=== PATIENT | female | born 1975 | race Caucasian/White ===

== ENCOUNTER 2025-04-04 10:30 | Outpatient (AMB) | payer BC, SELFPAY ==
--- NOTE | 2025-04-04 10:33 | A.OFFPC_ITS ---
Vital Signs 04/04/25 10:38 04/04/25 10:58 Height 5 ft 1 in Weight 243 lb 8 oz BMI 46.0 BP 152/94 H 150/90 H Blood Pressure Location Lt brachial Lt brachial Position Sitting Sitting Respiration 15 Pulse 95 Pulse Source Pulse Oximeter Temp 98.4 F Temp Source Oral Pulse Oximetry (%) 95 Oxygen Delivery Method Room Air Intake Visit Reasons: Coughing severe Intake Note: Patient c/o severe coughing, bodyaches, fever, and migraines last week in a half has gotten worse. [employer] Fscm Developer Required: No Allergies Seasonal Allergies Allergy (Mild, Verified 04/04/25 10:46) Runny Nose hydrocodone (Vicodin) Allergy (Unknown, Verified 04/04/25 10:46) nausea and vomiting morphine (Morphine) Allergy (Unknown, Verified 04/04/25 10:46) NAUSEA, vomiting acetaminophen (From Vicodin) Adverse Reaction (Mild, Verified 04/04/25 10:46) Nausea Medication List - Last Reconciled 04/04/25 by Maya Martinez [facility]- albuterol sulfate 90 mcg/actuation 2 puffs inhalation Q6H PRN fluticasone propionate 50 mcg/actuation 1 spray intranasal BID inhalational spacing device (BreatheRite MDI Spacer) As directed lisinopril 10 mg PO DAILY 90 days Tobacco use date assessed: 04/04/25 Dental Screening Dental Screen Date: 04/04/25 Did you have a dental visit in the last 12 months?: Yes Did you have a dental problem in the last 6 months where you did not have access to dental care?: No Was dental information given to patient?: Patient has dentist HPI HPI Comments History of Present Illness Details 49-year-old female with obesity, umbilic al hernia containing fat and omentum, uterine fibroid, bilat adnexal cysts, hepatic steatosis, CRPS, hyperlipidemia, prediabetes s/p repair of large umbilical hernia with mesh along with partial omentectomy 07/14/2023 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 History The patient is a 49-year-old female presenting with a persistent cough. Acute Cough: - The patient reports a cough that began intermittently in December, which she initially attributed to seasonal allergies. - Over the last week, the cough has beco me severe, disrupting her sleep and causing her to wake up throughout the night. - Associated symptoms include chest pain , headaches, and ear pain. - The cough is forceful enough to induce a vomiting sensation and stress urinary incontinence. - Symptoms are exacerbated by exertion, such as walking across campus or climbing stairs. - Self-treatment with Robitussin, Clarit in, an inhaler, and leftover cough pills has not provided relief. - The patient has a history of sinus inf ections and questions if this has progressed to bronchitis. Past Medical History - Sinus infections - History of a similar illness over the summer treated with prednisone and tessalon pills. Review of Systems - Constitutional: Denies fever. - Respiratory: Reports a severe cough an d dyspnea on exertion. Reports chest pain with coughing. Denies wheezing. - HEENT: Reports headache and ear pain. Reports significant congestion. - Gastrointestinal: Reports feeling like she is going to vomit from coughing. - Genitourinary: Reports stress incontin ence with coughing. Physical Exam General: Awake, alert. Mildly ill appearing No apparent distress Eyes: Sclera and conjunctiva clear bilaterally Nose: Nares clear drainage, turbinates within normal limits, no sinus tenderness with palpation bilaterally Ears: Tympanic membranes intact and clear bilaterally, both ears slightly pink, L>R Throat: Moist mucosa membrane, pharynx within normal limits Cardiovascular: Regular rate and rhythm Repeat BP 150/90 Respiratory: Paroxysmal cough, audible wheezing, increased bronchial breath sounds with inhalation and exhalation anterior upper chest Medical Decision Making The patient is a 49-year-old female presenting with a cough that started in December and has acutely worsened over the past week, now associated with sleep disturbance, chest pain, headache, and ear pain. She has failed conservative management with OTC medications and an inhaler. Physical exam is notable for significant upper airway congestion and bilateral erythematous tympanic membranes. Blood pressure is elevated, which will be rechecked at a future visit as it is likely reactive to her acute illness. Given the duration, severity of symptoms, and failure to improve, the clinical p icture suggests an acute upper respiratory infection, likely with a bacterial component such as sinusitis or bronchitis. The treatment plan is to address both the infectious and inflammatory components. I will prescribe a course of azithromycin and prednisone, which was effective for her during a prior illness. For symptomatic relief, particularly at night, a small prescription of cough syrup with codeine will be provided. The patient is afebrile, so there is no contraindication to administering the influenza vaccine today. I have instructed her on supportive care, including hydration and use of her inhaler, and to follow up in two weeks if her symptoms have not resolved. Plan 1. Acute Cough - Prescribed azithromycin and prednisone . - Prescribed cough syrup with codeine fo r use at night. Cont inhalers - Administer influenza vaccine in-office . - Advised patient to increase fluid inta ke and use her inhaler as needed. - Instructed to return for re-evaluation in two weeks if symptoms do not improve after completing the course of therapy. 2. Elevated Blood Pressure - The patient's blood pressure was noted to be high, likely due to her current illness. - Plan to recheck blood pressure at a fu ture visit when the patient is feeling better. - Cont lisinopril Patient Instructions - You will receive a flu shot today in [facility]. - Prescriptions for azithromycin and pre dnisone have been sent to [facility] on [facility]. - A prescription for cough syrup with co deine will also be sent for you to use at nighttime to help you sleep. - Drink plenty of fluids to help with th e cough. - Do not be afraid to use your inhaler i f needed. - If you are not feeling better in two w eeks, after you have finished all the medicine, you need to come back to the office to be seen again. Consent Patient was informed and verbally consented to the use of an ambient scribe for clinic note documentation during this visit [facility] Medical History (Updated 04/04/25 @ 11:00 by Maya Martinez, [facility]) Abnormal mammogram of left breast Abnormal ultrasound of breast General medical examination Obese Pilar cysts Right sided abdominal pain Scalp cyst Umbilical hernia Surgical History (Updated 03/07/25 @ 13:37 by Craline Barr) H/O breast biopsy History of removal of cyst (~06/18/15) History of surgery on arm History of surgical removal of ganglion cyst Hx of umbilical hernia repair (07/14/23) Family History (System 03/07/25 @ 13:37 by Carline Barr) Mother High blood pressure Stroke Father Sarcoid Cirrhosis of liver Social History (System 03/07/25 @ 13:37 by Carline Barr) Household Members: Family Household Members Other:: and parents Housing: House Are you a primary manager medicare marketing to a significant other at home: No Do you presently have visiting nurse or other home services: No Patient Tobacco Use Status: Former Tobacco user Years Smoked: less than a year e-Cigarette/Vaping Use: Never Used Second Hand Smoke Exposure: No service: No Current occupational status: employed Current occupation: [employer] Current occupational exposures/hazards: No Cognitive needs: No Hearing needs: No Vision needs: Yes Female Reproductive History Menstrual Age of Menarche: 15 Questionnaire Thrive Questionnaire Date Thrive assessed: 06/27/24 DANIE-7 AMB Questionnaire DANIE-7 Date DANIE - 7 assessed: 07/01/24 Source: Developed by Drs. Bong Rowland, Yuly Silverio, Jose Lindsey and colleagues, with an educational clarence from [employer]. Physical exam (Primary Care) Vital Signs: Last Vital Signs Temp 98.4 F 04/04/25 10:38 Pulse 95 04/04/25 10:38 Resp 15 04/04/25 10:38 BP 152/94 H 04/04/25 10:38 Pulse Ox 95 04/04/25 10:38 Oxygen Delivery Method Room Air 04/04/25 10:38 BMI result Body Mass Index 46.0 Tobacco/Smoking Status: Tobacco use Status Tobacco use date assessed 04/04/25 04/04/25 10:37 Patient Tobacco Use Status Former Tobacco user 04/04/25 10:37 e-Cigarette/Vaping Use Never Used 04/04/25 10:37 Thrive Assessment: Date of Thrive Assessment Date Thrive assessed 06/27/24 04/04/25 10:37 Office Procedures Flu Questionnaire Does the patient have a severe egg allergy?: No Does the patient have severe life threatening allergies?: No Does the patient have a fever or illness today?: No Has the patient ever had Guillain-[place] Syndrome?: No Has the patient ever had any past reaction to a flu shot?: No Immunizations Fluarix [id number] (PF) 45 mcg (15 mcg x 3)/0.5 mL IM syringe Performing Provider: GIO Malloy Performing Location: [facility] [place] Family Medicine Administered by: Herrera Rao MA on 04/04/25 10:57 Dose Route Admin Location Dispensed Lot Number Expiration Date NDC Body Shop Technician 0.5 mL IM Left Deltoid 0.5 mL [id number] 11/28/25 [id number] [employer]LA[employer] SMITHK[employer] VIS Given Date VIS Provided VIS Publication Date 04/04/25 Single Vaccine 24 Eligibility Eligibility Date Funding Source Not [facility] Eligible 04/04/25 Private Coding Level of Care Code Est Pt Level 3 (31359) Complex EM visit Add On G2211 Diagnoses Lower respiratory infection (e.g., bronchitis, pneumonia, pneumonitis, pulmonitis) J22 Influenza vaccination administered at current visit Z23 Primary hypertension I10 Hypertension type: primary hypertension Assessment & Plan Assessment & Plan (1) Lower respiratory infection (e.g., bronchitis, pneumonia, pneumonitis, pulmonitis): Code(s): J22 - Unspecified acute lower respiratory infection Category: Medical (2) Influenza vaccination administered at current visit: Onset Date: ~04/04/25 Code(s): Z23 - Encounter for immunization Category: Medical (3) HTN (hypertension): Code(s): I10 - Essential (primary) hypertension Category: Medical Qualifiers: Hypertension type: primary hypertension Qualified Code(s): I10 - Essential (primary) hypertension Plan . Orders: Orders Influenza [id number] Immunization Today Z23 - Encounter for immunization Medications: New codeine-guaifenesin 10-100 mg/5 mL (Guaifenesin AC) 10 mL PO BEDTIME PRN 50 mL 0RF cough 5 days prednisone 40 mg (2 x 20 mg) PO DAILY 10 tabs 0RF azithromycin For 250 mg dose pack: take 500 mg today (day 1), then 250 mg for 4 days (days 2-5) PO 6 tabs 0RF 5 days
[2025-04-04 10:38] VITALS: BP 152/94; PULSE 95; RESP 15; TEMP 36.9; O2SAT 95; BMI 46.0
[2025-04-04 10:58] VITALS: BP 150/90
== END 2025-04-04 10:58 | disposition home or self-care (01) ==
LOC: HO.HMCFM 10:30
PROVIDERS: PCP Nurse Practitioner Family; Visit Provider Nurse Practitioner Family
DX: J22 Unspecified acute lower respiratory infection (principal); Z23 Encounter for immunization; I10 Essential (primary) hypertension

== ENCOUNTER → 2025-04-04 10:30 | Outpatient (BNVA) | payer BC, SELFPAY | PROVIDERS: PCP Nurse Practitioner Family; Visit Provider Nurse Practitioner Family | DX: R05.1 Acute cough (principal); J22 Unspecified acute lower respiratory infection; I10 Essential (primary) hypertension; Z23 Encounter for immunization | CPT/HCPCS: 90471; 90656 ==

== ENCOUNTER 2025-05-23 09:12 | Outpatient (REF) | payer BC, SELFPAY ==
[2025-05-23 10:30] LABS: Alanine Aminotransferase 33 U/L (0-31); Albumin Level 4.3 g/dL (3.5-5.0); Alkaline Phosphatase 90 U/L (39-117); Anion Gap 12 (12-20); Aspartate Amino Transferase 29 U/L (5-31); Blood Urea Nitrogen 13 mg/dL (9-16); Calcium 9.0 mg/dL (8.4-10.2); Carbon Dioxide 24 mmol/L (22-29); Chloride 110 mmol/L (96-108); Cholesterol 222 mg/dL (<200); Estimated Glomerular Filt Rate > 60; HDL Cholesterol 38 mg/dL (>40); Potassium 4.4 mmol/L (3.3-5.1); Sodium 142 mmol/L (135-145); Total Protein 6.8 g/dL (6.5-8.0); Triglycerides 146 mg/dL (<150)
[2025-05-23 11:01] LABS: Microalbum/Creatinine Ratio Ur 123.3 ug/mg cr (<30)
== END 2025-05-23 09:13 | disposition home or self-care (01) ==
LOC: HO.LAB 09:12
PROVIDERS: PCP Nurse Practitioner Family; Visit Provider Nurse Practitioner Family
DX: Z00.00 Encounter for general adult medical examination without abnormal findings (principal); K76.0 Fatty (change of) liver, not elsewhere classified; E78.2 Mixed hyperlipidemia; E66.01 Morbid (severe) obesity due to excess calories; Z68.42 Body mass index [BMI] 45.0-49.9, adult; R73.03 Prediabetes
CPT/HCPCS: 36415; 80053; 80061; 82043; 82306; 82570; 83036; 84443

== ENCOUNTER 2025-05-26 11:59 | Outpatient (AMB) | payer BC, SELFPAY ==
--- NOTE | 2025-05-26 12:01 | A.OFFPC_ITS ---
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 blood pressure checked. BREAST CANCER SCREENING Experts do not agree about the benefits of breast self-exams in finding breast cancer or saving lives. Talk to your provider about what is best for you. A screening mammogram is not recommended for most women under age 40. Your provider may discuss and recommend mammograms, MRI scans, or ultrasounds if you have an increased risk for breast cancer, such as: A mother or sister who had breast cancer at a young age (most often starting screening earlier than the age the close relative was diagnosed) You carry a high-risk genetic marker CERVICAL CANCER SCREENING Cervical cancer screening should start at age 21 years unless your provider advises otherwise. After the first test: Women ages 21 through 29 should have a Pap test every 3 years. Exoprts do not agree on whether HPV testing is recommended for this age group. Women ages 30 through 65 should be screened with either a Pap test every 3 years or the HPV test every 5 years or both tests every 5 years (called cotesting ). Women who have been treated for precancer (cervical dysplasia) should continue to have Pap tests for 20 years after treatment or until age 65, whichever is longer. If you have had your uterus and cervix removed (total hysterectomy), and you have not been diagnosed with cervical cancer or precancer (high grade cervical neoplasia), you do not need cervical cancer screening. CHOLESTEROL SCREENING Cholesterol screening should begin at: Age 45 for women with no known risk factors for coronary heart disease Age 20 for women with known risk factors for coronary heart disease Repeat cholesterol screening should take place: Every 5 years for women with normal cholesterol levels More often if changes occur in lifestyle (including weight gain and diet) More often if you have diabetes, heart disease, kidney problems, or certain other conditions DIABETES SCREENING You should be screened for diabetes starting at age 35 and then repeated every 3 years if you have no risk factors for diabetes. Screening may need to start earlier and be repeated more often if you have other risk factors for diabetes, such as: You have a first degree relative with diabetes. You are overweight or have obesity. You have high blood pressure, prediabetes, or a history of heart disease. Screening for diabetes should be done if you are planning to become and you are overweight and have other risk factors such as high blood pressure. DENTAL EXAM Go to the dentist once or twice every year for an exam and cleaning. Your dentist will evaluate if you need more frequent visits. EYE EXAM Have an eye exam every 5 to 10 years before age 40. If you have vision problems, have an eye exam every 2 years or more often if recommended by your provider. You should have an eye exam that includes an examination of your retina (back of your eye) at least every year if you have diabetes. IMMUNIZATIONS Commonly needed vaccines include: Flu shot: get one every year. COVID-19 vaccine: ask your provider what is best for you. Tetanus-diphtheria and acellular pertussis (Tdap) vaccine: have one at or after age 19 as one of your tetanus-diphtheria vaccines if you did not receive it as an adolescent. Tetanus-diphtheria: have a booster (or Tdap) every 10 years. Varicella vaccine: receive 2 doses if you never had chickenpox or the varicella vaccine. Hepatitis B vaccine: receive 2, 3, or 4 doses, depending on your exact circ umstances. Measles, mumps, and rubella (MMR) vaccine: receive 1 to 2 doses if you are not already immune to MMR. Your provider can tell you if you are immune. Ask your provider about the human papillomavirus (HPV) vaccine if: You have not received the HPV vaccine in the past You have not completed the full vaccine series (you should catch up on this shot) Ask your provider if you should receive other immunizations if you have certain health problems that increase your risk for some diseases such as pneumonia. INFECTIOUS DISEASE SCREENING Women who are sexually active should be screened for chlamydia and gonorrhea up until age 25. Women 25 years and older should be screened for chlamydia and gonorrhea if at high risk. Screening for hepatitis C: All adults ages 18 to 79 should get a one-time test for hepatitis C. people should be screened at every . Screening for human immunodeficiency virus (HIV): All people ages 15 to 65 should get a one-time test for HIV. Depending on your lifestyle and medical history, you may also need to be screened for infections such as syphilis and HIV, as well as other infections. PHYSICAL EXAM All adults should visit their provider from time to time, even if they are healthy. The purpose of these visits is to: Screen for disease Assess your risk of future medical problems Encourage a healthy lifestyle Update your vaccinations and other preventive care services Maintain a relationship with a provider in case of an illness Your height, weight, and BMI should be checked at every exam. During your exam, your provider may ask you about: Depression and anxiety Diet and exercise Alcohol and tobacco use Safety issues, such as using seat belts, smoke detectors, and intimate partner violence Your medicines and risk for interactions SKIN SELF-EXAM Your provider may check your skin for signs of skin cancer, especially if you're at high risk, such as if you: Have had skin cancer before Have close relatives with skin cancer Have a weakened immune system OTHER SCREENING Talk with your provider about colon cancer screening if you have a strong family history of colon cancer or polyps, or if you have had inflammatory bowel disease or polyps yourself. Routine bone density screening of women under 40 is not recommended.
[2025-05-26 12:03] VITALS: BP 136/104; PULSE 87; RESP 14; TEMP 36.3; O2SAT 99; BMI 46.1
[2025-05-26 12:09] VITALS: BP 130/94
== END 2025-05-26 12:59 | disposition home or self-care (01) ==
LOC: HO.HMCFM 11:59
PROVIDERS: PCP Nurse Practitioner Family; Visit Provider Nurse Practitioner Family
DX: Z00.00 Encounter for general adult medical examination without abnormal findings (principal); E11.29 Type 2 diabetes mellitus with other diabetic kidney complication; E78.2 Mixed hyperlipidemia; I10 Essential (primary) hypertension; E55.9 Vitamin D deficiency, unspecified; G90.511 Complex regional pain syndrome I of right upper limb; R05.8 Other specified cough